=== PATIENT | female | born 1950 | race Caucasian/White ===

== ENCOUNTER → 2016-05-17 | Outpatient (CLI) | payer OTHER, BC ==
[~2016-05-17] MED LIST: ASPI81TA28 PO; BIOT1TAB5 PO; CALCTAB5 PO; CIPR-255 PO; CONJ0.453 PO; LISI-461 PO; MULT-506 PO
[2016-05-17 16:42] LABS: BASO % 0.6 %; BASO ABS # 0.05 K/uL (0-0.2); COMPLETE YES; EOS % 0.9 %; HEMATOCRIT 38.1 % (37-47); IG% 0.2 %; LYMPH % 40.4 %; LYMPH ABS # 3.62 K/uL (1.2-3.4); MEAN CELL VOLUME 92.3 fL (80-100); MEAN CORPUSCULAR HGB CONC 33.6 g/dl (32-36); MEAN PLATELET VOLUME 10.8 fL (7.4-10.4); MONO % 10.4 %; NEUT % 47.5 %; PLATELET COUNT 285 K/uL (130-400); RED BLOOD COUNT 4.13 M/uL (4.2-5.4); URINE APPEARANCE CLEAR (CLEAR); URINE BILIRUBIN NEG (NEG); URINE COLOR YELLOW; URINE NITRITE NEG (NEG); URINE PH 6.5 (4.5-7.5); URINE SPECIFIC GRAVITY 1.017 (1.000-1.030); UROBILINOGEN NEG (NEG); WHITE BLOOD COUNT 8.95 K/uL (4.8-10.8)
[2016-05-17 16:50] LABS: MANUAL MICROSCOPIC REQUIRED? NO; REVIEW REQ? NO
[2016-05-17 16:54] LABS: ALB/GLOB RATIO 1.1 (0.9-2); ALKALINE PHOSPHATASE 62 U/L (45-117); ALT/SGPT 18 U/L (12-78); AST/SGOT 17 U/L (15-37); BLOOD UREA NITROGEN 13 mg/dl (7-18); BUN/CREATININE RATIO 18.8 (10-20); CALCIUM 8.9 mg/dl (8.5-10.1); CARBON DIOXIDE 26 mmol/L (21-32); CHLORIDE 106 mmol/L (98-107); CREATININE 0.69 mg/dl (0.60-1.20); GLUCOSE 88 mg/dl (70-99); POTASSIUM 3.8 mmol/L (3.5-5.1); SODIUM 141 mmol/L (136-145)
== END | disposition home or self-care (01) ==
LOC: C.LAB1850 15:22
PROVIDERS: ATTEND Nurse Practitioner Family
DX: R10.814 Left lower quadrant abdominal tenderness (principal)

== ENCOUNTER → 2016-10-19 | Outpatient (CLI) | payer OTHER, BC ==
[2016-10-19 11:25] LABS: BLOOD UREA NITROGEN 13 mg/dl (7-18); BUN/CREATININE RATIO 18.4 (10-20); CALCIUM 8.2 mg/dl (8.5-10.1); CARBON DIOXIDE 25 mmol/L (21-32); CHLORIDE 107 mmol/L (98-107); CREATININE 0.71 mg/dl (0.60-1.20); GLUCOSE 85 mg/dl (70-99); POTASSIUM 3.8 mmol/L (3.5-5.1); SODIUM 140 mmol/L (136-145)
[2016-10-19 11:28] LABS: CHOLESTEROL 215 mg/dl (0-200); CHOLESTEROL/HDL RATIO 2.9; HDL CHOLESTEROL 74 mg/dl; LDL CHOLESTEROL CALCULATED 121 mg/dl; TRIGLYCERIDES 98 mg/dl (0-150); VERY LOW DENSITY LIPOPROT CALC 20 mg/dl
== END | disposition home or self-care (01) ==
LOC: C.LABBC 07:56
PROVIDERS: ATTEND Family Medicine
DX: I10 Essential (primary) hypertension (principal); E78.00 Pure hypercholesterolemia, unspecified

== ENCOUNTER → 2017-01-09 | Outpatient (CLI) | payer OTHER, BC ==
--- NOTE | 2017-01-10 07:55 | MAMMOGRAPHY REPORT ---
BILATERAL DIGITAL SCREENING MAMMOGRAM TOMOSYNTHESIS WITH CAD: 01/09/2017 CLINICAL HISTORY: Routine screening examination. TECHNIQUE: Breast tomosynthesis in addition to standard 2D mammography was performed. Current study was also evaluated with a Computer Aided Detection (CAD) system. COMPARISON: Comparison is made to exams dated: 08/28/2013 mammogram, 08/03/2015 mammogram, 08/27/2012 m ammogram, 10/27/2010 mammogram - [facility], and 06/12/2007. BREAST COMPOSITION: The tissue of both breasts is almost entirely fatty. FINDINGS: The parenchymal pattern is unchanged. No developing mass, architectural distortion or clus ter of suspicious microcalcifications is seen in either breast. IMPRESSION: ACR BI-RADS CATEGORY 2: BENIGN There is no mammographic evidence of malignancy. A 1 year screening mammogram is recommended. The pa tient will receive written notification of the results. Approximately 10% of breast cancers are not detected with mammography. A negative mammographic report should not delay biopsy if a clinically suggestive mass is present. Mary Treviño M.D. ay/:01/09/2017 17:13:17 [employer] Teacher: Debbie HUMPHREY(R)(M), [facility] letter sent: Normal 1/2 BI-RADS Code: ACR BI-RADS Category 2: Benign
== END | disposition home or self-care (01) ==
LOC: C.MAMM 17:00
PROVIDERS: ATTEND Family Medicine
DX: Z12.31 Encounter for screening mammogram for malignant neoplasm of breast (principal)

== ENCOUNTER → 2017-02-21 | Outpatient (CLI) | payer OTHER, BC | END | disposition home or self-care (01) | LOC: C.LABSPEC 10:34 | PROVIDERS: ATTEND Nurse Practitioner Adult Health | DX: N89.8 Other specified noninflammatory disorders of vagina (principal) ==

== ENCOUNTER → 2017-03-13 | Outpatient (CLI) | payer OTHER, BC ==
[2017-03-13 16:36] LABS: BASO % 0.7 %; BASO ABS # 0.06 K/uL (0-0.2); EOS % 1.3 %; EOS ABS # 0.11 K/uL (0-0.5); HEMATOCRIT 40.3 % (37-47); HEMOGLOBIN 13.5 g/dL (12.0-16.0); IG# 0.02 K/uL (0.00-0.02); LYMPH % 38.9 %; LYMPH ABS # 3.38 K/uL (1.2-3.4); MEAN CELL VOLUME 93.7 fL (80-100); MEAN CORPUSCULAR HEMOGLOBIN 31.4 pg (25-34); MEAN CORPUSCULAR HGB CONC 33.5 g/dl (32-36); MEAN PLATELET VOLUME 10.5 fL (7.4-10.4); MONO % 7.7 %; MONO ABS # 0.67 K/uL (0.11-0.59); NEUT % 51.2 %; NEUT ABS # 4.46 K/uL (1.4-6.5); PLATELET COUNT 271 K/uL (130-400); RED CELL DISTRIBUTION WIDTH CV 13.4 % (11.5-14.5); RED CELL DISTRIBUTION WIDTH SD 45.6 fL (36.4-46.3)
[2017-03-13 17:12] LABS: ALBUMIN 3.5 gm/dl (3.4-5.0); ALT/SGPT 16 U/L (12-78); AST/SGOT 14 U/L (15-37); BLOOD UREA NITROGEN 13 mg/dl (7-18); CALCIUM 8.5 mg/dl (8.5-10.1); CARBON DIOXIDE 26 mmol/L (21-32); CREATININE 0.68 mg/dl (0.60-1.20); GLUCOSE 88 mg/dl (70-99); POTASSIUM 3.6 mmol/L (3.5-5.1); SODIUM 138 mmol/L (136-145); URIC ACID 3.5 mg/dl (2.6-7.2)
[2017-03-13 17:14] LABS: ALKALINE PHOSPHATASE 64 U/L (45-117); TOTAL PROTEIN 7.5 gm/dl (6.4-8.2)
== END | disposition home or self-care (01) ==
LOC: C.LAB1850 15:41
PROVIDERS: ATTEND Nurse Practitioner Family
DX: M79.603 Pain in arm, unspecified (principal)

== ENCOUNTER 2023-07-31 15:01 | Inpatient (IN) ==
[2023-07-31 15:59] LABS: Appearance Urine Clear (Clear); Bacteria Urine Automated None Seen (None Seen); Bilirubin Urine 1+ (Negative); Blood Urine Negative (Negative); Cast Urine Automated 0-2 /lpf (0-2); Color Urine Dark Yellow; Glucose Urine UA Negative (Negative); Ketones Urine 2+ (Negative); Leukocyte Esterase Urine 1+ (Negative); Nitrite Urine Negative (Negative); Protein Urine 1+ (Negative); RBC Urine Automated 0-2 /hpf (0-2); Specific Gravity Urine 1.022 (1.000-1.030); Urobilinogen Urine Negative (Negative)
[2023-07-31 16:00] LABS: Basophils % (auto) 0.5 %; Eosinophils # (auto) 1.19 K/uL (0.00-0.50); Eosinophils % (auto) 6.2 %; Hematocrit (blood only) 36.1 % (37.0-47.0); Immature Granulocytes % (auto) 0.5 %; Lymphocytes % (auto) 10.4 %; Mean Corpuscular Hemoglobin 30.6 pg (25.0-34.0); Mean Corpuscular Hgb Conc 33.2 g/dL (32.0-36.0); Mean Corpuscular Volume 92.1 fL (80.0-100.0); Mean Platelet Volume 10.1 fL (9.4-12.4); Monocytes # (auto) 1.64 K/uL (0.11-0.59); Monocytes % (auto) 8.5 %; Neutrophils # (auto) 14.26 K/uL (1.40-6.50); Neutrophils % (auto) 73.9 %; Platelet Count 266 K/uL (130-400); RDW Coefficient of Variation 13.2 % (11.5-14.5); RDW Standard Deviation 44.6 fL (36.4-46.3); Red Blood Count 3.92 M/uL (4.20-5.40); White Blood Count 19.29 K/ul (4.8-10.8)
--- NOTE | 2023-07-31 16:44 | Emergency Department Note ---
Impression & Plan Abdominal pain, lower, Leukocytosis ED Provider Note NAME: LUIS EDUARDO SCHWARTZ AGE: 73 SEX: Female INFORMANT: Abdominal ED PROVIDER(S): Shay Arroyo MD CHIEF COMPLAINT: Abdominal pain PLAN: Disposition: Admit Outpatient prescription management: none Referral: None MEDICAL DECISION MAKING: Patient presented because of abdominal pain. Initially she declined analgesia. She was sent for CT imaging. Her urinalysis somewhat abnormal but culture sent. She does not have any urinary symptoms. The patient has a significant leukocytosis. CT imaging was concerning for diverticulitis with a small abscess and possible contained perforation. Discussed with the patient. She was started on IV Cipro and Flagyl. Consulted with general surgery, Dr. Saumya Liz. She did review the imaging. She agreed with antibiotics and medical admission. She will consult on the patient. Consultation was made with Dr. Zechariah Rees of the [facility] service. Patient was evaluated in the ER for further management. Care/management discussed with: none Level of care consideration(s): After review of the information above and other included data, I feel the patient requires escalation of care to admission Triage Nursing notes: reviewed and agree them. Vital Signs: reviewed and remarkable for no significant abnormalities Additional History obtained from: none Chronic Medical/Social Conditions affecting care: none Prior/ Outside/ External records reviewed: none Differential Diagnosis: Renal colic, UTI, appendicitis, diverticulitis, mesenteric ischemia, aortic pathology, infections, inflammatory bowel disease, PUD, biliary pathology, as well as other pathologies. Diagnostics, independently interpreted by me: ECG: none Cardiac Monitoring: none Medical decision rules: none Imaging studies: CT imaging of the abdomen pelvis reveals acute diverticulitis with developing abscess and perforation. Radiology noted no drainable fluid collections. HPI: 73 year old Female arrives for evaluation of lower abdominal pain. This started over the last week and is worsened. The patient also notes the following associated symptoms, some mild nausea and diarrhea. The patient has taken no medication for relieving factors. Current pain is rated as 6/10. Patient states she saw her PCP and had a KUB done and was told that she had moderate mount of stool but patient notes she has been having loose stool. Pt denies LOC, headache, fevers, chills, diaphoresis, visual changes, neck pain, chest pain, breathing difficulties, vomiting, back pain, melena, hematochezia, urinary symptoms, numbness, weakness, lymphadenopathy, rash, or other complaints. PAST MEDICAL HISTORY: See Below, diverticulitis PAST SURGICAL HISTORY: See Below, SOCIAL HISTORY: See Below, HOME MEDICATIONS: See Below ALLERGIES: See Below VITALS: See Below PHYSICAL EXAMINATION: GENERAL: Awake, alert, uncomfortable-appearing, in no distress HENT: Normocephalic, atraumatic. Oropharynx unremarkable. EYES: Normal conjunctiva. Sclera non-icteric. NECK: Inspection normal. Non-tender. Supple. No nuchal rigidity. FROM. No masses. RESPIRATORY: Clear to auscultation. No wheezes. No rales. Normal respiratory effort. CARDIAC: Normal rate. Normal rhythm. No murmurs. No rubs. Extremities warm and well perfused. Pulses equal. No JVD. GI: Soft, non-distended. Bilateral lower tenderness to palpation. No rebound or guarding. No masses. RECTAL: Deferred. MUSCULOSKELETAL: Atraumatic. Chest examination reveals no tenderness. The back is symmetrical on inspection without obvious abnormality. There is no CVA tenderness to palpation. No joint edema. LOWER EXTREMITIES: Calves are equal size bilaterally and non-tender. No edema. No discoloration. NEURO: Normal sensorium. No sensory or motor deficits noted. SKIN: No rash or jaundice noted. PROCEDURES: none CRITICAL CARE: none OBSERVATION NOTE: none Past Med/Surg History Problem List (Updated 07/31/23 @ 16:44 by Shay Arroyo MD) Leukocytosis (Acute) Abdominal pain, lower (Acute) Contusion, lips Routine gynecological examination Hyperglycemia Tendonitis of upper biceps tendon of left shoulder Rectal polyp Vitamin B12 deficiency Encounter for health maintenance examination Hormone replacement therapy Sensorineural hearing loss (SNHL) of both ears Aortic regurgitation Hypertension Coronary artery disease PCI to the LAD to D1 06/05/2019. 50-60 percent proximal RCA stenosis Hypercholesterolemia (Acute) Herpes simplex labialis (Acute) Medical History Congestion of nasal sinus Headache Abnormality of eyelid Left shoulder pain Sensorineural hearing loss (SNHL) of right ear with restricted hearing of left ear Bloody stools Acrochordon Cyst of left upper eyelid Decreased hearing Toe pain, bilateral Right asymmetrical SNHL Pyelonephritis Postmenopausal Neoplasm of uncertain behavior of skin Lymphadenopathy Cervical radiculopathy Causalgia of left upper extremity Bulky or enlarged uterus Arm pain, medial Anal polyp Hypertension Surgical History H/O hemorrhoidectomy S/P tonsillectomy and adenoidectomy History of colonoscopy H/O left cataract extraction Hx of tubal ligation S/P tubal ligation Family History Mother Lung cancer Father Myocardial infarction, Onset Age: 51 Throat cancer Brother FH: kidney cancer Denies family history of Ovarian cancer Prostate cancer Breast cancer Colorectal cancer Social History Smoking Status: Never smoker Second Hand Exposure: Yes; Do You Dip or Chew Tobacco: No; Hx Alcohol Use: Yes Alcohol type: wine Hx Substance Use: No Preferred Language: Ukrainian Communication Ability: Effective Visual Impairment: No Limitations 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 Beliefs That Will Affect Care: None marital status: Current Living Situation: Spouse current occupational status: retired current occupation: apartment management Feels Safe at Home: Yes Childhood Exposure to Second-Hand Smoke: Yes Dental Care, Regularly: Yes Physical Activity Frequency: Daily Seatbelt Use: always Sunscreen Use: No Assistive Devices: None Allergies Allergies Allergy/AdvReac Type Severity Reaction Status Date / Time amoxicillin Allergy Mild Hives Verified 07/30/23 15:43 codeine AdvReac Mild Vomiting Verified 07/30/23 15:43 oxycodone AdvReac Mild Vomiting Verified 07/30/23 15:43 ampicillin AdvReac Verified 07/30/23 15:43 Home Meds Home Medications Medication Instructions Recorded Confirmed [id number] acid 1 tab PO QAM #0 tabs 10/07/13 07/31/23 400 mcg-vitamin K 80 mcg capsule (Multi For Her 50 Plus) biotin 1 mg tablet 1 mg PO DAILY 10/10/18 07/31/23 calcium carbonate 600 mg-vitamin 1 tab PO BID 10/10/18 07/31/23 D3 5 mcg (200 unit) tablet mecobalamin (vitamin B12) 1,000 1,000 mcg PO DAILY 01/30/22 07/31/23 mcg lozenges lisinopril 40 mg tablet 40 mg PO DAILY 07/30/23 07/31/23 Previous Rx's Medication Instructions Recorded aspirin 81 mg tablet,delayed 81 mg PO DAILY #30 tabs 05/28/19 release (Adult Aspirin Regimen) valacyclovir 1 gram tablet 2,000 mg (2 x 1 gram) PO BID PRN 02/06/22 cold sores #12 tabs conj estrogen-medroxyprogesterone 1 tab PO QAM #84 tabs 07/05/22 0.45 mg-1.5 mg tablet (Prempro) atorvastatin 40 mg tablet 40 mg PO HS #90 tabs 12/31/22 metoprolol succinate 25 mg 25 mg PO DAILY #90 tabs 02/25/23 tablet,extended release 24 hr Results & Data (ED) Vital Signs Vital Signs - 24 hr 07/31/23 15:05 07/31/23 15:28 07/31/23 15:48 Temperature 36.9 C Temperature Source Temporal Artery Scan Pulse Rate 82 73 Pulse Rate [Apical] Pulse Rate from SpO2 Sensor 73 Respiratory Rate 15 21 Respiratory Effort / Characteristics Non-Labored Spontaneous Respiratory Depth Normal Blood Pressure 162/90 H Blood Pressure [Left Arm] Blood Pressure Mean 114 Blood Pressure Mean [Left Arm] Pulse Oximetry 99 97 Oxygen Delivery Method Room Air Room Air Sepsis Recent Fever Within 48 Hours No Sepsis New/Unexplained Change in Mental Status No Sepsis Action Taken by Nursing No Action Required 07/31/23 16:00 07/31/23 16:03 07/31/23 16:07 Temperature Temperature Source Pulse Rate 71 71 Pulse Rate [Apical] 70 Pulse Rate from SpO2 Sensor 71 Respiratory Rate 14 14 Respiratory Effort / Characteristics Respiratory Depth Blood Pressure Blood Pressure [Left Arm] 130/78 Blood Pressure Mean Blood Pressure Mean [Left Arm] 95 Pulse Oximetry 98 97 Oxygen Delivery Method Room Air Sepsis Recent Fever Within 48 Hours Sepsis New/Unexplained Change in Mental Status Sepsis Action Taken by Nursing 07/31/23 16:48 07/31/23 17:00 07/31/23 17:09 Temperature Temperature Source Pulse Rate 73 72 Pulse Rate [Apical] 70 Pulse Rate from SpO2 Sensor 73 72 Respiratory Rate 20 14 22 Respiratory Effort / Characteristics Respiratory Depth Blood Pressure Blood Pressure [Left Arm] 139/104 H Blood Pressure Mean Blood Pressure Mean [Left Arm] 115 Pulse Oximetry 97 98 98 Oxygen Delivery Method Room Air Sepsis Recent Fever Within 48 Hours Sepsis New/Unexplained Change in Mental Status Sepsis Action Taken by Nursing 07/31/23 18:24 07/31/23 18:25 07/31/23 18:25 Temperature Temperature Source Pulse Rate 79 Pulse Rate [Apical] 79 Pulse Rate from SpO2 Sensor 80 Respiratory Rate 17 22 Respiratory Effort / Characteristics Respiratory Depth Blood Pressure 165/87 H Blood Pressure [Left Arm] 165/87 H Blood Pressure Mean 134 Blood Pressure Mean [Left Arm] 113 Pulse Oximetry 98 99 Oxygen Delivery Method Room Air Sepsis Recent Fever Within 48 Hours Sepsis New/Unexplained Change in Mental Status Sepsis Action Taken by Nursing 07/31/23 18:36 07/31/23 19:12 07/31/23 19:33 Temperature Temperature Source Pulse Rate 78 83 72 Pulse Rate [Apical] Pulse Rate from SpO2 Sensor 78 84 73 Respiratory Rate 18 21 22 Respiratory Effort / Characteristics Respiratory Depth Blood Pressure Blood Pressure [Left Arm] Blood Pressure Mean Blood Pressure Mean [Left Arm] Pulse Oximetry 98 98 98 Oxygen Delivery Method Room Air Sepsis Recent Fever Within 48 Hours Sepsis New/Unexplained Change in Mental Status Sepsis Action Taken by Nursing 07/31/23 19:39 Temperature Temperature Source Pulse Rate 75 Pulse Rate [Apical] Pulse Rate from SpO2 Sensor Respiratory Rate Respiratory Effort / Characteristics Respiratory Depth Blood Pressure Blood Pressure [Left Arm] Blood Pressure Mean Blood Pressure Mean [Left Arm] Pulse Oximetry Oxygen Delivery Method Sepsis Recent Fever Within 48 Hours Sepsis New/Unexplained Change in Mental Status Sepsis Action Taken by Nursing Laboratory Data 07/31/23 15:27 07/31/23 15:27 Lab Results 07/31/23 Range/Units 15:27 WBC 19.29 H (4.8-10.8) K/ul RBC 3.92 L (4.20-5.40) M/uL Hgb 12.0 (12.0-16.0) g/dl Hct 36.1 L (37.0-47.0) % MCV 92.1 (80.0-100.0) fL MCH 30.6 (25.0-34.0) pg MCHC 33.2 (32.0-36.0) g/dL RDW Std Deviation 44.6 (36.4-46.3) fL RDW Coeff of Celia 13.2 (11.5-14.5) % Plt Count 266 (130-400) K/uL MPV 10.1 (9.4-12.4) fL Immature Gran % (Auto) 0.5 % Neut % (Auto) 73.9 % Lymph % (Auto) 10.4 % [place] % (Auto) 8.5 % Eos % (Auto) 6.2 % Baso % (Auto) 0.5 % Neut # (Auto) 14.26 H (1.40-6.50) K/uL Lymph # (Auto) 2.00 (1.20-3.40) K/uL [place] # (Auto) 1.64 H (0.11-0.59) K/uL Eos # (Auto) 1.19 H (0.00-0.50) K/uL Baso # (Auto) 0.10 (0.00-0.20) K/uL Immature Gran # (Auto) 0.10 (0.01-0.20) K/uL Sodium 136 (136-145) mmol/L Potassium 3.9 (3.5-5.1) mmol/L Chloride 104 (98-107) mmol/L Carbon Dioxide 25 (21-32) mmol/L Anion Gap 7 (3-11) BUN 12 (6-23) mg/dl Creatinine 0.60 (0.6-1.2) mg/dl Est Cr Clr Drug Dosing 69.0 ml/min Est GFR ( Amer) 104.1 ml/min Est GFR (Non-Af Amer) 89.8 ml/min BUN/Creatinine Ratio 20.0 (10-20) Glucose 136 H (70-99(Fasting)) mg/dl Calcium 9.1 (8.6-10.3) mg/dl Total Bilirubin 0.5 (0.2-1.0) mg/dl AST 13 (13-39) U/L ALT 11 (7-52) U/L Alkaline Phosphatase 62 (34-104) U/L Total Protein 7.0 (6.0-8.3) gm/dl Albumin 3.6 (3.4-5.0) gm/dl Globulin 3.4 (2.5-4.0) gm/dl Albumin/Globulin Ratio 1.1 (0.9-2) Lipase 8 L (11-82) U/L Urine Color Dark Yellow Urine Appearance Clear (Clear) Urine pH 6.0 (4.5-7.5) Ur Specific [place] 1.022 (1.000-1.030) Urine Protein 1+ H (Negative) Urine Glucose (UA) Negative (Negative) Urine Ketones 2+ H (Negative) Urine Blood Negative (Negative) Urine Nitrite Negative (Negative) Urine Bilirubin 1+ H (Negative) Urine Urobilinogen Negative (Negative) Ur Leukocyte Esterase 1+ H (Negative) Urine WBC (Auto) 11-20 H (0-5) /hpf Urine RBC (Auto) 0-2 (0-2) /hpf U Hyaline Cast (Auto) 0-2 (0-2) /lpf U Epithel Cells (Auto) 6-10 H (0-2) /hpf Urine Bacteria (Auto) None Seen (None Seen) Administered Medications Hydromorphone HCl (Hydromorphone Inj 0.5 Mg/0.5 Ml Syr) 0.25 mg IV Q4H PRN PRN Reason: Severe Pain (Scale 7, 8, 9,10) Stop: 08/14/23 21:09 Last Admin: 07/31/23 21:25 Dose: 0.25 mg Documented By: CESAR Discontinued Medications Sodium Chloride (Nss) 500 mls @ 999 mls/hr IV .Q31M ONE Stop: 07/31/23 16:43 Last Infusion: 07/31/23 20:16 Dose: Infused Documented By: Admin: 07/31/23 16:52 Dose: 999 mls/hr Documented By: FREDERICK Ciprofloxacin (Cipro / D5w) 400 mg in 200 mls @ 100 mls/hr IV NOW STA; Protocol Stop: 07/31/23 20:37 Last Infusion: 07/31/23 21:00 Dose: Infused Documented By: Admin: 07/31/23 18:55 Dose: 100 mls/hr Documented By: FREDERICK Metronidazole (Flagyl) 500 mg in 100 mls @ 100 mls/hr IV NOW STA; Protocol Stop: 07/31/23 19:37 Last Infusion: 07/31/23 20:16 Dose: Infused Documented By: Admin: 07/31/23 18:55 Dose: 100 mls/hr Documented By: FREDERICK Ioversol (Optiray 320 100ml) 90 ml IV ONCE ONE Stop: 07/31/23 17:22 Last Admin: 07/31/23 17:21 Dose: 90 ml Documented By: YURI Imaging Data Radiologist's Impression: Abdomen/Pelvis CT 07/31/23 16:[address] WITH IV CONTRAST CT DOSE: 703.78 mGy.cm HISTORY: Acute lower abdominal pain with leukocytosis lower abd pain, high WBC TECHNIQUE: Multiaxial CT images of the abdomen and pelvis were performed following the IV administration of 90 cc of Optiray, A dose lowering technique was utilized adhering to the principles of ALARA. COMPARISON STUDY: 01/03/2016 FINDINGS: Mild bibasilar atelectasis. No upper abdominal pneumoperitoneum or portal venous gas. Unremarkable spleen, pancreas and adrenal glands. Borderline gallbladder wall thickening with layering sludge versus cholelithiasis. No significant biliary ductal dilation is identified. Unremarkable liver. There is patency of the hepatic and portal veins. Bilateral renal sinus cysts. No hydronephrosis. Unremarkable urinary bladder. Prominent left adnexal vessels of unknown clinical significance. Atherosclerosis of the aorta and branch vessels. Subcentimeter retroperitoneal lymph nodes. Tiny hiatal hernia. No small bowel obstruction. Colonic diverticulosis with acute mid sigmoid diverticulitis. There is eccentric locule of gas in the sigmoid mesentery on image 249 series 3 which may represent air within a diverticulum versus contained perforation. 2.7 cm focus of fluid noted within the sigmoid mesocolon on image 261 series 3 without a definitively well-defined wall. Moderate fecal retention. Normal appendix. There are a few scattered sclerotic subcentimeter foci within the bony pelvis, possibly representing bone islands. No acute fracture. IMPRESSION: 1. Acute sigmoid diverticulitis with possible small contained perforation. 2. Reactive ascites within the pelvis with a possible 2.7 cm developing abscess in the sigmoid mesocolon. No drainable fluid collections. 3. No bowel obstruction. 4. Incidental findings as above. ACT 112: Negative or not required by law. The above report was generated using voice recognition software. It may contain grammatical, syntax or spelling errors. Electronically signed by: Beto Blanc M.D. 07/31/2023 6:12 PM Discharge Plan Visit Data Chief Complaint: Abdominal Pain Stated Complaint: ABD PAIN, ED Provider: Shay Arroyo Discharge Problem: Abdominal pain, lower, Leukocytosis Patient Disposition: Admitted As Inpatient Discharge Instructions Interventions: ED Discharge Assessment Last Done: 07/31/23 20:36
[2023-07-31] MEDS: SODIUM CHLORIDE 0.9% 500 ML IV ONE (16:52)
[2023-07-31 16:56] LABS: Albumin Globulin Ratio 1.1 (0.9-2); Albumin Level 3.6 gm/dl (3.4-5.0); Bilirubin,Total 0.5 mg/dl (0.2-1.0); Calcium 9.1 mg/dl (8.6-10.3); Est GFR (African American) 104.1 ml/min; Est GFR (Non-African American) 89.8 ml/min; Globulin 3.4 gm/dl (2.5-4.0)
[2023-07-31 16:59] LABS: Potassium 3.9 mmol/L (3.5-5.1)
[2023-07-31] MEDS: OPTIRAY 320 100ml IV ONE (17:21)
--- NOTE | 2023-07-31 18:14 | CT Scan Report ---
ABDOMEN AND PELVIS CT WITH IV CONTRAST CT DOSE: 703.78 mGy.cm HISTORY: Acute lower abdominal pain with leukocytosis lower abd pain, high WBC TECHNIQUE: Multiaxial CT images of the abdomen and pelvis were performed following the IV administrat ion of 90 cc of Optiray, A dose lowering technique was utilized adhering to the principles of ALARA. COMPARISON STUDY: 01/03/2016 FINDINGS: Mild bibasilar atelectasis. No upper abdominal pneumoperitoneum or portal venous gas. Unrem arkable spleen, pancreas and adrenal glands. Borderline gallbladder wall thickening with layering slu dge versus cholelithiasis. No significant biliary ductal dilation is identified. Unremarkable liver. There is patency of the hepatic and portal veins. Bilateral renal sinus cysts. No hydronephrosis. Unr emarkable urinary bladder. Prominent left adnexal vessels of unknown clinical significance. Atheroscl erosis of the aorta and branch vessels. Subcentimeter retroperitoneal lymph nodes. Tiny hiatal hernia. No small bowel obstruction. Colonic diverticulosis with acute mid sigmoid diverti culitis. There is eccentric locule of gas in the sigmoid mesentery on image 249 series 3 which may re present air within a diverticulum versus contained perforation. 2.7 cm focus of fluid noted within th e sigmoid mesocolon on image 261 series 3 without a definitively well-defined wall. Moderate fecal re tention. Normal appendix. There are a few scattered sclerotic subcentimeter foci within the bony pelv is, possibly representing bone islands. No acute fracture. IMPRESSION: 1. Acute sigmoid diverticulitis with possible small contained perforation. 2. Reactive ascites within the pelvis with a possible 2.7 cm developing abscess in the sigmoid mesoco leslie. No drainable fluid collections. 3. No bowel obstruction. 4. Incidental findings as above. ACT 112: Negative or not required by law. The above report was generated using voice recognition software. It may contain grammatical, syntax o r spelling errors. Electronically signed by: Beto Blanc M.D. 07/31/2023 6:12 PM
[2023-07-31] MEDS: metroNIDAZOLE 500 MG/100 ML BAG IV STA (18:55)
[2023-07-31] MEDS: CIPROFLOXACIN / D5W 400 MG/200 ML BAG IV STA (18:55)
--- NOTE | 2023-07-31 19:59 | History & Physical Report ---
Date of Service July 31, 2023 Assessment & Plan (1) Acute diverticulitis: (2) Coronary artery disease: (3) Hypercholesterolemia: (4) Hypertension: Plan Anita is a 73 y/o F with PMHx of CAD, HLD, HTN who was admitted for management of acute diverticulitis Acute Diverticulitis -Patient with history of progressively worsening left lower quadrant pain without associated fevers -KUB ordered by her PCP did not show any obstructions but did show moderate fecal retention throughout the colon and phleboliths in the pelvis. -CTAP showing acute sigmoid diverticulitis with possible small contained perforation, reactive ascites within the pelvis with a possible 2.7 cm developing abscess in the sigmoid mesocolon, no drainable fluid collections. -Leukocytosis of 19 on arrival. No history of fevers at home or in ED. -Lactate wnl -ED physician consulted with general surgeon who did not think patient had drainable fluid -Will admit patient for IV antibiotic therapy with Ciprofloxacin 400 mg bid and metronidazole 500 mg q8h -Zofran prn for nausea -Pain management with Tylenol 1000mg q8h for mild pain, Toradol for moderate pain, and Dilaudid for severe pain -Consider general surgery consult if appropriate -am CBC HTN -Continue Lisinopril 40 mg daily HLD -Continue Atorvastatin 40mg daily CAD -Continue Metoprolol succinate 25 mg and ASA 81 mg Dispo: PCU/Tele Fluids: LR @ 125 ml/hr Diet: NPO until surgery eval Pain Control: Tylenol --> Toradol --> Dilaudid VTE ppx: Lovenox Code Status: Full History of Present Illness Chief Complaint: Abdominal Pain Primary Care Provider: Jamin Nieves MD Anita is a 73-year-old female with past medical history relevant for CAD, hyperlipidemia, hypertension, and 6 weeks of diarrhea who came to the emergency department due to abdominal pain. Patient reports having pain that has been mainly localized to the left lower quadrant with occasional radiation to the suprapubic region that began last Saturday (07/20/23) and has steadily gotten worse. Associated symptoms included nausea and tired. She has also had 6 weeks of diarrhea that got acutely worse once her abdominal pain began. KUB ordered by her PCP did not show obstruction, but did show moderate fecal retention throughout the colon. When she brought this up to her PCP, they did a UA a considering the possibility that of this being related to a UTI that was but this was negative. Therefore, her PCP recommended a bowel cleanse considering that her pain may be related to constipation. Because patient has history of prior diverticulitis that was treated with p.o. antibiotics, she believes that her pain could be related to another episode of diverticulitis and had asked for a CT of her abdomen. Due to delay in getting this imaging done because of insurance protocols, she was advised to go to the emergency department for further evaluation. Upon arrival, CTAP was done which showed diverticulitis in the sigmoid colon. ED Course: Fluid bolus of normal saline given, ciprofloxacin and metronidazole started as antibiotic regimen due to patient's history of amoxicillin allergy. Spoke to general surgeon who evaluated imaging studies and determined that there were no fluid collections to drain. Labs/Imaging: CTAP showing acute sigmoid diverticulitis with possible small contained perforation, reactive ascites within the pelvis with a possible 2.7 cm developing abscess in the sigmoid mesocolon, no drainable fluid collections. CBC with leukocytosis of 19.29 with neutrophilic predominance and eosinophilia of 1.19, hemoglobin of 12. Metabolic panel without significant electrolyte abnormalities, renal markers within reference range, blood sugar of 136, liver enzymes within reference range, lipase of 8. UA showing 2+ ketones, some leukocyte esterase, no bacteria. Medical History: [Reviewed] Medications: [Reviewed] Surgical History: [Reviewed] Social History: [Reviewed] Code Status: Full Allergies Allergy/AdvReac Type Severity Reaction Status Date / Time amoxicillin Allergy Mild Hives Verified 07/30/23 15:43 codeine AdvReac Mild Vomiting Verified 07/30/23 15:43 oxycodone AdvReac Mild Vomiting Verified 07/30/23 15:43 ampicillin AdvReac Verified 07/30/23 15:43 Home Medications Medication Instructions Recorded Confirmed Type ditdfuyeogjg-lulmdapn-lzzcm acid 1 tab PO QAM #0 tabs 10/07/13 07/31/23 History 400 mcg-vitamin K 80 mcg capsule (Multi For Her 50 Plus) biotin 1 mg tablet 1 mg PO DAILY 10/10/18 07/31/23 History calcium carbonate 600 mg-vitamin 1 tab PO BID 10/10/18 07/31/23 History D3 5 mcg (200 unit) tablet aspirin 81 mg tablet,delayed 81 mg PO DAILY #30 tabs 05/28/19 07/31/23 Rx release (Adult Aspirin Regimen) mecobalamin (vitamin B12) 1,000 1,000 mcg PO DAILY 01/30/22 07/31/23 History mcg lozenges valacyclovir 1 gram tablet 2,000 mg (2 x 1 gram) PO BID PRN 02/06/22 07/31/23 Rx cold sores #12 tabs conj estrogen-medroxyprogesterone 1 tab PO QAM #84 tabs 07/05/22 07/31/23 Rx 0.45 mg-1.5 mg tablet (Prempro) atorvastatin 40 mg tablet 40 mg PO HS #90 tabs 12/31/22 07/31/23 Rx metoprolol succinate 25 mg 25 mg PO DAILY #90 tabs 02/25/23 07/31/23 Rx tablet,extended release 24 hr lisinopril 40 mg tablet 40 mg PO DAILY 07/30/23 07/31/23 History Past Med/Surg History Problem List (Updated 07/31/23 @ 16:44 by Shay Arroyo MD) Leukocytosis (Acute) Abdominal pain, lower (Acute) Contusion, lips Routine gynecological examination Hyperglycemia Tendonitis of upper biceps tendon of left shoulder Rectal polyp Vitamin B12 deficiency Encounter for health maintenance examination Hormone replacement therapy Sensorineural hearing loss (SNHL) of both ears Aortic regurgitation Hypertension Coronary artery disease PCI to the LAD to D1 06/05/2019. 50-60 percent proximal RCA stenosis Hypercholesterolemia (Acute) Herpes simplex labialis (Acute) Medical History Congestion of nasal sinus Headache Abnormality of eyelid Left shoulder pain Sensorineural hearing loss (SNHL) of right ear with restricted hearing of left ear Bloody stools Acrochordon Cyst of left upper eyelid Decreased hearing Toe pain, bilateral Right asymmetrical SNHL Pyelonephritis Postmenopausal Neoplasm of uncertain behavior of skin Lymphadenopathy Cervical radiculopathy Causalgia of left upper extremity Bulky or enlarged uterus Arm pain, medial Anal polyp Hypertension Surgical History H/O hemorrhoidectomy S/P tonsillectomy and adenoidectomy History of colonoscopy H/O left cataract extraction Hx of tubal ligation S/P tubal ligation Family History Mother Lung cancer Father Myocardial infarction, Onset Age: 51 Throat cancer Brother FH: kidney cancer Denies family history of Ovarian cancer Prostate cancer Breast cancer Colorectal cancer Social History Smoking Status: Never smoker Second Hand Exposure: Yes; Do You Dip or Chew Tobacco: No; Hx Alcohol Use: Yes Alcohol type: wine Hx Substance Use: No Preferred Language: Rwandan Communication Ability: Effective Visual Impairment: No Limitations Hearing Ability: Use of Hearing Aid Supplier Quality Specialist Required: No Beliefs That Will Affect Care: None marital status: Current Living Situation: Spouse current occupational status: retired current occupation: apartment management Feels Safe at Home: Yes Childhood Exposure to Second-Hand Smoke: Yes Dental Care, Regularly: Yes Physical Activity Frequency: Daily Seatbelt Use: always Sunscreen Use: No Assistive Devices: None Review of Systems Review of Systems: As per HPI Physical Exam Physical Exam: GENERAL: AAOx3, afebrile, calm, NAD HEAD: AT, NC EYES: EOM intact, XANDER, no conjunctival injection CHEST: symmetric chest expansions CARDIO: RRR, murmur on right sternal border PULMONARY: CTA bilaterally, normal respiratory effort, no respiratory distress GI: non-distended, soft, tenderness to superficial palpation of LLQ, suprapubic tenderness due to pain radiation to LLQ, no tenderness in other abdominal quadrants : no Hussein EXTREMITIES: no swelling or calf tenderness in bilateral LE SKIN: no rashes or lesions observed Results & Data Results & Data Vital Signs (Past 12 Hours) Vital Signs Temp Pulse Pulse Resp BP BP Pulse Ox 07/31/23 19:39 75 07/31/23 18:25 79 22 165/87 H 99 07/31/23 17:00 70 14 139/104 H 98 07/31/23 16:07 71 07/31/23 16:00 70 14 130/78 98 07/31/23 15:48 73 21 97 07/31/23 15:28 07/31/23 15:05 36.9 C 82 15 162/90 H 99 O2 Del Method 07/31/23 19:39 07/31/23 18:25 Room Air 07/31/23 17:00 Room Air 07/31/23 16:07 06/19/24 16:00 Room Air 07/31/23 15:48 07/31/23 15:28 Room Air 07/31/23 15:05 Room Air Supervising Physician Co-Signing Physician Notes Patient seen and examined, chart reviewed, case discussed with Ania Dias MD and I agree with the assessment and plan as above except as otherwise noted Labs and images reviewed Anita is a 73-year-old female who presents with acute diverticulitis. She was not on antibiotics preceding admission. CT shows acute sigmoid diverticulitis with possible small contained perforation, possible 2.7 cm developing abscess adjacent to the sigmoid without drainable fluid collection. She has a leukocytosis of 19. She is hemodynamically stable at time of bedside assessment. Patient has had some constipation with 6 weeks of liquid diarrhea however abdominal pain is acute in the last week. At bedside assessment she has left lower quadrant tenderness to palpation, but no tenderness to palpation at the right lower abdomen/no guarding/no rebound/no rigidity. No signs of acute abdomen. Surgery was consulted, small nondrainable abscess recommended for medical admission and treatment at this time. Patient has a hive allergy as a young adult to amoxicillin and has no record of receiving penicillins or cephalosporins. She does not have any vascular abnormalities, aneurysms, is a non-smoker, and has a normal baseline QT. Will continue Cipro/Flagyl however of concern for failure to improve patient is agreeable to trialing Rocephin/Flagyl and monitoring closely for allergy. N.p.o., IV FM. Agree with above.
--- NOTE | 2023-07-31 20:21 | Billing Data ---
Date of Service July 31, 2023 Coding Level of Care Code 41533 INT INP/OBS CARE
[2023-07-31] MEDS ORDERED: ONDANSETRON INJ 2 MG/ML 2 ML VIAL IV PRN (21:10)
[2023-07-31] MEDS ORDERED: ACETAMINOPHEN 1,000 MG/100 ML VIAL IV PRN (21:10)
[2023-07-31] MEDS: HYDROmorphone INJ 0.5 MG/0.5 ML SYR IV PRN (21:25)
[2023-07-31] MEDS: LACTATED RINGER'S 1,000 ML IV SCH (21:34)
[2023-07-31] MEDS: ATORVASTATIN 40 MG TAB PO SCH (22:10)
[2023-08-01] MEDS: metroNIDAZOLE 500 MG/100 ML BAG IV SCH (03:11)
[2023-08-01] MEDS: CIPROFLOXACIN / D5W 400 MG/200 ML BAG IV SCH (06:48)
[2023-08-01 07:20] LABS: Basophils % (auto) 0.6 %; Eosinophils % (auto) 4.6 %; Hematocrit (blood only) 32.3 % (37.0-47.0); Immature Granulocytes # (auto) 0.07 K/uL (0.01-0.20); Immature Granulocytes % (auto) 0.4 %; Lymphocytes # (auto) 2.16 K/uL (1.20-3.40); Lymphocytes % (auto) 12.4 %; Mean Corpuscular Hemoglobin 31.4 pg (25.0-34.0); Mean Corpuscular Hgb Conc 34.1 g/dL (32.0-36.0); Mean Corpuscular Volume 92.3 fL (80.0-100.0); Mean Platelet Volume 9.9 fL (9.4-12.4); Monocytes # (auto) 1.77 K/uL (0.11-0.59); Monocytes % (auto) 10.1 %; Neutrophils # (auto) 12.54 K/uL (1.40-6.50); Neutrophils % (auto) 71.9 %; Platelet Count 249 K/uL (130-400); RDW Coefficient of Variation 13.1 % (11.5-14.5); White Blood Count 17.44 K/ul (4.8-10.8)
[2023-08-01 07:40] LABS: Albumin Globulin Ratio 1.1 (0.9-2); Albumin Level 3.1 gm/dl (3.4-5.0); Bilirubin,Total 0.7 mg/dl (0.2-1.0); Calcium 8.2 mg/dl (8.6-10.3); Creatinine Clr Calc Pharmacy 76.5 ml/min; Est GFR (African American) 107.7 ml/min; Globulin 2.7 gm/dl (2.5-4.0); Potassium 3.6 mmol/L (3.5-5.1); Total Protein 5.8 gm/dl (6.0-8.3)
--- NOTE | 2023-08-01 07:53 | Surgery Consultation ---
<Statement entered by Stephanie Salas DO - 08/01/23 10:47> I have seen and examined this patient with the surgical team this a.m. I agree with this plan Date of Consultation August 01, 2023 Assessment & Plan (1) Perforation of sigmoid colon due to diverticulitis: This is a 73yF with a PMH of HTN, coronary artery disease, HLD who presents to the [facility] ED on 07/31/23 with complaints of abdominal pain. She started having loose stools in June after one of her HTN medications was adjusted. This has been persisting now in addition to some abdominal discomfort starting over the wknd. Workup with a KUB was unremarkable outside of some fecal retention and she was given a bowel cleanse. As her symptoms persisted and pain worsened she ended up coming into the ER for further evaluation. She underwent a CT a/p that revealed acute sigmoid diverticulitis with possible small contained perforation. Reactive ascites within the pelvis with a possible 2.7 cm developing abscess in the sigmoid mesocolon. No drainable fluid collections. The patient states she did have a bout of diverticulitis many years ago and was treated with outpatient antibiotics. Her last colonoscopy was about 4 years ago and she noted no concerns. Today's blood work reveals WBC 17 (19), Hbg 11, Cr 0.56. Vital signs are stable and patient is afebrile. On exam abdomen is soft with tenderness to palpation in the LLQ and suprapubic regions. Agree with hospitalization and current supportive management of perforated diverticulitis with small abscess, unnameable to drainage at this time. Continue bowel rest (may have ice chips), IVF, and IV abx. We will continue to monitor closely. Patient is feeling better than admission and hopefully she will continue to progress without the need for any emergent surgical intervention. Will trend WBC and vital signs and her clinical status for ongoing improvement. We will follow closely. History of Present Illness Attending Physician: Carlos Feliz MD History of Present Illness This is a 73yF with a PMH of HTN, coronary artery disease, HLD who presents to the [facility] ED on 07/31/23 with complaints of abdominal pain. Patient is unsure if this is related, but she said she started having multiple loose stools a week after her helminthology teacher adjusted some of her blood pressure medications. She let it go on for a few weeks when she decided to research side effects of the drug she was placed on (lisinopril-HCTZ) and loose stools was one of them. She then came off the medication for a wk then resumed it, when last Saturday she stated braeden ricardo had upwards of 6 bouts of diarrhea with incontinence. Saturday she felt better, but then Saturday she started developing lower abdominal pain. The pain worsened and was associated with malaise and nausea. She went to her PCP office this wk where they sent off a UA and was placed on a "bowel cleanse" after workup with a KUB showed fecal retention. Unfortunately as her symptoms of lower abdominal pain persisted, rating it a 9/10 in severity at its worst, she decided to come into the ER for evaluation. She underwent a CT a/p that revealed acute sigmoid diverticulitis with possible small contained perforation. Reactive ascites within the pelvis with a possible 2.7 cm developing abscess in the sigmoid mesocolon. No drainable fluid collections. The patient states she did have a bout of diverticulitis many years ago and was treated with outpatient antibiotics. Her last colonoscopy was about 4 years ago and she noted no concerns. She has no prior abdominal surgical history. She denies emesis, fevers/chills, CP or bloody BMs. Allergies Allergy/AdvReac Type Severity Reaction Status Date / Time amoxicillin Allergy Mild Hives Verified 07/30/23 15:43 codeine AdvReac Mild Vomiting Verified 07/30/23 15:43 oxycodone AdvReac Mild Vomiting Verified 07/30/23 15:43 ampicillin AdvReac Verified 07/30/23 15:43 Home Medications Medication Instructions Recorded Confirmed Type iqthhvimopeb-uwpkydup-jhwij acid 1 tab PO QAM #0 tabs 10/07/13 07/31/23 History 400 mcg-vitamin K 80 mcg capsule (Multi For Her 50 Plus) biotin 1 mg tablet 1 mg PO DAILY 10/10/18 07/31/23 History calcium carbonate 600 mg-vitamin 1 tab PO BID 10/10/18 07/31/23 History D3 5 mcg (200 unit) tablet aspirin 81 mg tablet,delayed 81 mg PO DAILY #30 tabs 05/28/19 07/31/23 Rx release (Adult Aspirin Regimen) mecobalamin (vitamin B12) 1,000 1,000 mcg PO DAILY 01/30/22 07/31/23 History mcg lozenges valacyclovir 1 gram tablet 2,000 mg (2 x 1 gram) PO BID PRN 02/06/22 07/31/23 Rx cold sores #12 tabs conj estrogen-medroxyprogesterone 1 tab PO QAM #84 tabs 07/05/22 07/31/23 Rx 0.45 mg-1.5 mg tablet (Prempro) atorvastatin 40 mg tablet 40 mg PO HS #90 tabs 12/31/22 07/31/23 Rx metoprolol succinate 25 mg 25 mg PO DAILY #90 tabs 02/25/23 07/31/23 Rx tablet,extended release 24 hr lisinopril 40 mg tablet 40 mg PO DAILY 07/30/23 07/31/23 History Patient History Medical History Congestion of nasal sinus Headache Abnormality of eyelid Left shoulder pain Sensorineural hearing loss (SNHL) of right ear with restricted hearing of left ear Bloody stools Acrochordon Cyst of left upper eyelid Decreased hearing Toe pain, bilateral Right asymmetrical SNHL Pyelonephritis Postmenopausal Neoplasm of uncertain behavior of skin Lymphadenopathy Cervical radiculopathy Causalgia of left upper extremity Bulky or enlarged uterus Arm pain, medial Anal polyp Hypertension Surgical History H/O hemorrhoidectomy S/P tonsillectomy and adenoidectomy History of colonoscopy H/O left cataract extraction 10/22/17- given 4mg IV versed without issues Hx of tubal ligation S/P tubal ligation Family History Mother Lung cancer Father Myocardial infarction, Onset Age: 51 Throat cancer Brother FH: kidney cancer Denies family history of Ovarian cancer Prostate cancer Breast cancer Colorectal cancer Social History Smoking Status: Never smoker Second Hand Exposure: Yes; Do You Dip or Chew Tobacco: No; Hx Alcohol Use: Yes Alcohol type: hard liquor Hx Substance Use: No Preferred Language: Wolof Communication Ability: Effective Visual Impairment: No Limitations Hearing Ability: Use of Hearing Aid Welder And Fitter Required: No Beliefs That Will Affect Care: None marital status: Current Living Situation: Spouse current occupational status: retired current occupation: apartment management Feels Safe at Home: Yes Childhood Exposure to Second-Hand Smoke: Yes Dental Care, Regularly: Yes Physical Activity Frequency: Daily Seatbelt Use: always Sunscreen Use: No Assistive Devices: None Review of Systems Constitutional: + fatigue and + malaise; no fever and no chills Respiratory: + dyspnea Cardiovascular: no chest pain Gastrointestinal: + abdominal pain, + nausea and + diarrhe a/loose stools; no vomiting and no blood in stools Genitourinary: no problem reported Physical Exam Physical Exam: awake/alert, no distress Constitutional: well developed and well nourished; no acute distress Respiratory: normal respiratory effort Gastrointestinal (Abdomen): Inspection/Auscultation: + abdomen distended (mild lower abdominal distention) Percussion/Palpation: + abdomen tender (discomfort in LLQ and suprapubic regions) and abdomen soft Results & Data Vital Signs (Past 12 Hours) Vital Signs Temp Pulse Pulse Resp BP Pulse Ox O2 Del Method 08/01/23 07:34 76 08/01/23 03:09 98.6 F 68 16 129/80 96 Room Air 07/31/23 22:00 70 07/31/23 21:00 73 07/31/23 21:00 98.1 F 72 20 152/75 H 98 Room Air 07/31/23 20:17 92 H 8 L Diagnostic Findings ABDOMEN AND PELVIS CT WITH IV CONTRAST CT DOSE: 703.78 mGy.cm HISTORY: Acute lower abdominal pain with leukocytosis lower abd pain, high WBC TECHNIQUE: Multiaxial CT images of the abdomen and pelvis were performed following the IV administration of 90 cc of Optiray, A dose lowering technique was utilized adhering to the principles of ALARA. COMPARISON STUDY: 01/03/2016 FINDINGS: Mild bibasilar atelectasis. No upper abdominal pneumoperitoneum or portal venous gas. Unremarkable spleen, pancreas and adrenal glands. Borderline gallbladder wall thickening with layering sludge versus cholelithiasis. No sign ificant biliary ductal dilation is identified. Unremarkable liver. There is patency of the hepatic and portal veins. Bilateral renal sinus cysts. No hydronephrosis. Unremarkable urinary bladder. Prominent left adnexal vessels of unknown clinical significance. Atherosclerosis of the aorta and branch vessels. Subcentimeter retroperitoneal lymph nodes. Tiny hiatal hernia. No small bowel obstruction. Colonic diverticulosis with acute mid sigmoid diverticulitis. There is eccentric locule of gas in the sigmoid mesentery on image 249 series 3 which may represent air within a diverticulum versus contained perforation. 2.7 cm focus of fluid noted within the sigmoid mesocolon on image 261 series 3 without a definitively well-defined wall. Moderate fecal retention. Normal appendix. There are a few scattered sclerotic subcentimeter foci within the bony pelvis, possibly representing bone islands. No acute fracture. IMPRESSION: 1. Acute sigmoid diverticulitis with possible small contained perforation. 2. Reactive ascites within the pelvis with a possible 2.7 cm developing abscess in the sigmoid mesocolon. No drainable fluid collections. 3. No bowel obstruction. 4. Incidental findings as above. ACT 112: Negative or not required by law. The above report was generated using voice recognition software. It may contain grammatical, syntax or spelling errors. Electronically signed by: Beto Blanc M.D. 07/31/2023 6:12 PM PG Care Time/CCT Total # of Minutes Spent Total Time Spent with Patient: Total time spent is greater than 50% in coordination of care (as documented) at patient's floor/unit and/or counseling patient: Coding Level of Care Code 49791 INT INP/OBS CARE 2/55MIN Diagnoses Perforation of sigmoid colon due to diverticulitis K57.20
[2023-08-01] MEDS: ASPIRIN 81 MG ECTAB PO SCH (09:39)
[2023-08-01] MEDS: METOPROLOL SUCC 25MG EXT REL TAB PO SCH (09:39)
[2023-08-01] MEDS: lisinopril 40 MG TAB PO SCH (09:39)
[2023-08-01] MEDS: ENOXAPARIN INJ 40 MG/0.4 ML SYR SQ SCH (09:40)
--- NOTE | 2023-08-01 10:54 | Hospitalist Progress Note ---
Date of Service August 01, 2023 Assessment & Plan (1) Perforation of sigmoid colon due to diverticulitis: Plan: Patient was admitted on account of lower abd pain Found to have Acute diverticulitis with small perforation and abscess on Ct abd No draianable abscess though Started empirically on IV Flagyl and Ciprogloxacin Gen surgery on board, no surgical indications for now keep NPO (2) Hypertension: Plan: BP is under fair control On Lisinopril at home, continue (3) Coronary artery disease: Plan: stable Plan continue hospitalization Admission and Anticipated Discharge Date Admission Date: July 31, 2023 Subjective patient seen and examined, feels better today, minimal abd pain, no nausea or vomiting Review of Systems Review of Systems: All systems reviewed are negative, apart from the ones contained in the history. Physical Exam Physical Exam: The patient is awake, alert and oriented 3, well developed and well nourished, normocephalic and atraumatic, lying in bed and in no acute distress. HEENT--PERRL, EOMI, mucous membranes and oropharynx mildly dry Neck--supple. No JVD. No bruits. Thyroid normal, trachea midline, no adenopathy. Heart--normal S1 and S2. No murmurs, rubs or gallops. Lungs--clear bilaterally, no respiratory distress, no accessory muscle use. Abdomen--normal bowel sounds and soft. Extremities--no cyanosis or clubbing. No edema. Dermatologic--normal skin turgor, normal color, no abnormal lymph nodes, no rash. Neurologic--cranial nerves II through XII grossly intact. Rheumatologic--normal range of motion. Psychiatric--normal affect. Results & Data Results & Data Vital Signs (Past 12 Hours) Vital Signs Temp Pulse Pulse Resp BP Pulse Ox O2 Del Method 08/01/23 08:27 98.6 F 75 18 151/87 H 97 Room Air 08/01/23 07:34 76 08/01/23 03:09 98.6 F 68 16 129/80 96 Room Air PG Care Time/CCT Total # of Minutes Spent Total Time Spent with Patient: Total time spent is greater than 50% in coordination of care (as documented) at patient's floor/unit and/or counseling patient: Coding Level of Care Code 85631 SUB INP/OBS CARE 2/35MIN Diagnoses Perforation of sigmoid colon due to diverticulitis K57.20 Hypertension I10 Coronary artery disease I25.10 Time Spent (min) 35
[2023-08-01] MEDS: KETOROLAC TROMETHAMINE 15 MG/ML VIAL IV PRN (18:29)
[2023-08-02 06:36] LABS: Basophils # (auto) 0.09 K/uL (0.00-0.20); Basophils % (auto) 0.6 %; Eosinophils # (auto) 0.69 K/uL (0.00-0.50); Eosinophils % (auto) 4.8 %; Hemoglobin 10.8 g/dl (12.0-16.0); Immature Granulocytes # (auto) 0.06 K/uL (0.01-0.20); Immature Granulocytes % (auto) 0.4 %; Lymphocytes # (auto) 2.45 K/uL (1.20-3.40); Lymphocytes % (auto) 17.1 %; Mean Corpuscular Hemoglobin 30.9 pg (25.0-34.0); Mean Corpuscular Hgb Conc 33.8 g/dL (32.0-36.0); Mean Corpuscular Volume 91.4 fL (80.0-100.0); Mean Platelet Volume 9.3 fL (9.4-12.4); Monocytes # (auto) 1.35 K/uL (0.11-0.59); Monocytes % (auto) 9.4 %; Neutrophils # (auto) 9.71 K/uL (1.40-6.50); Neutrophils % (auto) 67.7 %; Platelet Count 263 K/uL (130-400); RDW Coefficient of Variation 12.2 % (11.5-14.5); RDW Standard Deviation 41.2 fL (36.4-46.3); White Blood Count 14.35 K/ul (4.8-10.8)
[2023-08-02 06:59] LABS: Albumin Globulin Ratio 1.1 (0.9-2); Albumin Level 3.1 gm/dl (3.4-5.0); BUN Creatinine Ratio 11.3 (10-20); Bilirubin,Total 0.5 mg/dl (0.2-1.0); Calcium 8.1 mg/dl (8.6-10.3); Creatinine Clr Calc Pharmacy 77.9 ml/min; Est GFR (African American) 108.4 ml/min; Est GFR (Non-African American) 93.5 ml/min; Globulin 2.8 gm/dl (2.5-4.0); Potassium 3.4 mmol/L (3.5-5.1); Total Protein 5.9 gm/dl (6.0-8.3)
--- NOTE | 2023-08-02 12:10 | Surgery Progress Note ---
Date of Service August 02, 2023 Assessment & Plan (1) Perforation of sigmoid colon due to diverticulitis: Plan Leukocytosis is resolving at 14,000 today from 17,000 yesterday. The patient has been afebrile, continues to experience resolving symptoms and is non TTP to mild palpation. Has been tolerating ice chips. Will go ahead and allow the patient to be advanced to clear liquids. I have asked her to take in small amounts of clears at a time. If she develops any abdominal cramping with oral intake to hold off any further today. Dr. Goncalves will follow-up and see the patient in the a.m. as he is on-call over this weekend. Of note, the patient is looking forward to being able to be discharged at least by Saturday to participate in a planned camping trip Saturday. As long as she continues to show improving symptoms without any relapses I do not see the utility in performing a repeat CT to follow-up on the small abscess at this time. This may be considered on outpatient basis when she is close to the completion of her oral antibiotic course after discharge. She may follow-up with me in the office in 1 to 2 weeks for this assessment. Admission and Anticipated Discharge Date Admission Date: July 31, 2023 Subjective This patient was seen and examined today. Today she denies any abdominal pain, states she is able to ambulate without pain. She denies nausea/vomiting, fevers or chills. She states she feels as though she is starving and demands to have some form of advanced oral intake aside from ice chips which she has been tole rating. Physical Exam Constitutional: average body habitus and healthy appearing; not ill appearing, not in distress and not diaphoretic Respiratory: normal respiratory effort; no respiratory distress, no labored breathing and does not use accessory muscles Gastrointestinal (Abdomen): Inspection/Auscultation: abdomen normal to inspection; abdomen not distended Percussion/Palpation: abdomen soft; abdomen nontender, no guarding and abdomen not rigid Results & Data Vital Signs (Past 12 Hours) Vital Signs Temp Pulse Pulse Resp BP Pulse Ox O2 Del Method 08/02/23 11:21 36.9 C 66 18 170/92 H 99 Room Air 08/02/23 07:43 69 08/02/23 07:29 37.0 C 67 16 161/84 H 97 Room Air 08/02/23 02:40 36.6 C 64 16 145/79 H 97 Room Air Diagnostic Findings WBC 14,000 today from 17,000 yesterday PG Care Time/CCT Total # of Minutes Spent Total Time Spent with Patient: Total time spent is greater than 50% in coordination of care (as documented) at patient's floor/unit and/or counseling patient: Coding Level of Care Code 98020 SUB INP/OBS CARE 03/07MIN Diagnoses Perforation of sigmoid colon due to diverticulitis K57.20
--- NOTE | 2023-08-02 12:12 | Hospitalist Progress Note ---
Date of Service August 02, 2023 Assessment & Plan (1) Perforation of sigmoid colon due to diverticulitis: Plan: Patient was admitted on account of lower abd pain Found to have Acute diverticulitis with small perforation and abscess on Ct abd No draianable abscess though Started empirically on IV Flagyl and Ciprogloxacin Gen surgery on board, no surgical indications for now Patient has been n.p.o. but states she wants to eat General surgery notified, started on clear liquid diet. She may need repeat CT abdomen for follow-up, however will defer to surgery. (2) Hypertension: Plan: BP is under fair control On Lisinopril at home, continue (3) Coronary artery disease: Plan: stable Plan continue hospitalization Admission and Anticipated Discharge Date Admission Date: July 31, 2023 Subjective Patient seen and examined, said the pain is better but she is frustrated that she has been n.p.o., she wants to eat. Review of Systems Review of Systems: All systems reviewed are negative, apart from the ones contained in the history. Physical Exam Physical Exam: The patient is awake, alert and oriented 3, well developed and well nourished, normocephalic and atraumatic, lying in bed and in no acute distress. HEENT--PERRL, EOMI, mucous membranes and oropharynx mildly dry Neck--supple. No JVD. No bruits. Thyroid normal, trachea midline, no adenopathy. Heart--normal S1 and S2. No murmurs, rubs or gallops. Lungs--clear bilaterally, no respiratory distress, no accessory muscle use. Abdomen--normal bowel sounds and soft. Extremities--no cyanosis or clubbing. No edema. Dermatologic--normal skin turgor, normal color, no abnormal lymph nodes, no rash. Neurologic--cranial nerves II through XII grossly intact. Rheumatologic--normal range of motion. Psychiatric--normal affect. Results & Data Results & Data Vital Signs (Past 12 Hours) Vital Signs Temp Pulse Pulse Resp BP Pulse Ox O2 Del Method 08/02/23 11:21 98.4 F 66 18 170/92 H 99 Room Air 08/02/23 07:43 69 08/02/23 07:29 98.6 F 67 16 161/84 H 97 Room Air 08/02/23 02:40 97.9 F 64 16 145/79 H 97 Room Air PG Care Time/CCT Total # of Minutes Spent Total Time Spent with Patient: Total time spent is greater than 50% in coordination of care (as documented) at patient's floor/unit and/or counseling patient: Coding Level of Care Code 72246 SUB INP/OBS CARE 2/35MIN Diagnoses Perforation of sigmoid colon due to diverticulitis K57.20 Hypertension I10 Coronary artery disease I25.10 Time Spent (min) 35
[2023-08-02] MEDS: LACTATED RINGER'S 1,000 ML IV SCH (15:03)
[2023-08-02] MEDS: amLODIPine BESYLATE 5 MG TAB PO ONE (18:09)
[2023-08-03 07:56] LABS: Basophils # (auto) 0.07 K/uL (0.00-0.20); Basophils % (auto) 0.7 %; Eosinophils # (auto) 0.55 K/uL (0.00-0.50); Eosinophils % (auto) 5.7 %; Hematocrit (blood only) 34.5 % (37.0-47.0); Hemoglobin 11.8 g/dl (12.0-16.0); Immature Granulocytes # (auto) 0.04 K/uL (0.01-0.20); Immature Granulocytes % (auto) 0.4 %; Lymphocytes # (auto) 1.69 K/uL (1.20-3.40); Lymphocytes % (auto) 17.6 %; Mean Corpuscular Hgb Conc 34.2 g/dL (32.0-36.0); Mean Corpuscular Volume 90.6 fL (80.0-100.0); Mean Platelet Volume 9.8 fL (9.4-12.4); Monocytes # (auto) 0.97 K/uL (0.11-0.59); Monocytes % (auto) 10.1 %; Neutrophils # (auto) 6.27 K/uL (1.40-6.50); Neutrophils % (auto) 65.5 %; Platelet Count 302 K/uL (130-400); RDW Coefficient of Variation 12.8 % (11.5-14.5); RDW Standard Deviation 42.5 fL (36.4-46.3); Red Blood Count 3.81 M/uL (4.20-5.40); White Blood Count 9.59 K/ul (4.8-10.8)
[2023-08-03 08:18] LABS: Albumin Globulin Ratio 1.1 (0.9-2); Albumin Level 3.3 gm/dl (3.4-5.0); BUN Creatinine Ratio 10.4 (10-20); Bilirubin,Total 0.4 mg/dl (0.2-1.0); Calcium 8.3 mg/dl (8.6-10.3); Est GFR (Non-African American) 96.6 ml/min; Globulin 3.1 gm/dl (2.5-4.0); Total Protein 6.4 gm/dl (6.0-8.3)
--- NOTE | 2023-08-03 08:52 | Surgery Progress Note ---
Date of Service August 03, 2023 Assessment & Plan (1) Perforation of sigmoid colon due to diverticulitis: Plan: Pt here w/ perforated sigmoid diverticulitis with small abscess WBC 9 (14). Vitals are stable Pt feeling improvement in pain overall. Abdominal exam improving Tolerating clears, hungry for more Will advance to low fiber, if tolerates may plan on dispo later today Recommend a course of po abx of at least 10 days in addition to an outpt GI appt for colonoscopy in 6-8 wks (last one was 4 years ago) Admission and Anticipated Discharge Date Admission Date: July 31, 2023 Supervising Physician Co-Signing Physician Notes pnt S&E, agree w/ above. diverticulitis with small phlegmon/abscess, improved. afvss, abd soft, minimally ttp, wbc normal. d/c on low fiber diet, abx, f/u with pcp. Needs new colonoscopy. Subjective patient reports feeling much better. Abdominal pain improving. tolerating clears no nausea/vomiting Physical Exam Physical Exam: awake/alert, no distress Respiratory: normal respiratory effort Gastrointestinal (Abdomen): Inspection/Auscultation: abdomen not distended Percussion/Palpation: + abdomen tender (improving LLQ and suprapubic discomfort to palpation ) and abdomen soft Results & Data Vital Signs (Past 12 Hours) Vital Signs Temp Pulse Pulse Resp BP BP Pulse Ox 08/03/23 08:03 98.4 F 65 16 152/82 H 98 08/03/23 03:16 98.2 F 66 16 157/82 H 97 08/02/23 23:07 97.7 F 73 16 165/90 H 97 08/02/23 23:00 64 O2 Del Method 08/03/23 08:03 Room Air 08/03/23 03:16 Room Air 08/02/23 23:07 Room Air 08/02/23 23:00 PG Care Time/CCT Total # of Minutes Spent Total Time Spent with Patient: Total time spent is greater than 50% in coordination of care (as documented) at patient's floor/unit and/or counseling patient: Coding Level of Care Code 85496 SUB INP/OBS CARE 03/07MIN Diagnoses Perforation of sigmoid colon due to diverticulitis K57.20
--- NOTE | 2023-08-03 09:30 | Hospitalist Progress Note ---
Date of Service August 03, 2023 Assessment & Plan (1) Perforation of sigmoid colon due to diverticulitis: Plan: Patient was admitted on account of lower abd pain Found to have Acute diverticulitis with small perforation and abscess on Ct abd No drainable abscess though Started empirically on IV Flagyl and Ciprofloxacin Gen surgery on board, no surgical indications for now Tolerating clear liquid diet, patient wants her diet advanced to general She may need repeat CT abdomen for follow-up outpatient Patient wants to be discharged today, if he tolerates general diet she will be discharged (2) Hypertension: Plan: BP is under fair control On Lisinopril at home, continue (3) Coronary artery disease: Plan: stable Plan If patient tolerates general diet, will discharge Admission and Anticipated Discharge Date Admission Date: July 31, 2023 Subjective Patient seen and examined, she tolerated clear liquid diet and wants her diet advanced to general, looks for early discharge today Review of Systems Review of Systems: All systems reviewed are negative, apart from the ones contained in the history. Physical Exam Physical Exam: The patient is awake, alert and oriented 3, well developed and well nourished, normocephalic and atraumatic, lying in bed and in no acute distress. HEENT--PERRL, EOMI, mucous membranes and oropharynx mildly dry Neck--supple. No JVD. No bruits. Thyroid normal, trachea midline, no adenopathy. Heart--normal S1 and S2. No murmurs, rubs or gallops. Lungs--clear bilaterally, no respiratory distress, no accessory muscle use. Abdomen--normal bowel sounds and soft. Extremities--no cyanosis or clubbing. No edema. Dermatologic--normal skin turgor, normal color, no abnormal lymph nodes, no rash. Neurologic--cranial nerves II through XII grossly intact. Rheumatologic--normal range of motion. Psychiatric--normal affect. Results & Data Results & Data Vital Signs (Past 12 Hours) Vital Signs Temp Pulse Pulse Resp BP BP Pulse Ox 08/03/23 08:03 98.4 F 65 16 152/82 H 98 08/03/23 03:16 98.2 F 66 16 157/82 H 97 08/02/23 23:07 97.7 F 73 16 165/90 H 97 08/02/23 23:00 64 O2 Del Method 08/03/23 08:03 Room Air 06/22/24 03:16 Room Air 08/02/23 23:07 Room Air 08/02/23 23:00 PG Care Time/CCT Total # of Minutes Spent Total Time Spent with Patient: Total time spent is greater than 50% in coordination of care (as documented) at patient's floor/unit and/or counseling patient: Coding Level of Care Code 60718 SUB INP/OBS CARE 2/35MIN Diagnoses Perforation of sigmoid colon due to diverticulitis K57.20 Hypertension I10 Coronary artery disease I25.10 Time Spent (min) 35
[2023-08-03] MEDS: amLODIPine BESYLATE 5 MG TAB PO SCH (09:40)
[2023-08-03] MEDS: POTASSIUM CHLORIDE CRTAB 20 MEQ TABCR PO STA (10:06)
[2023-08-03] MEDS: metroNIDAZOLE 500 MG TAB PO STA (12:16)
--- NOTE | 2023-08-03 12:36 | Discharge Summary ---
Date of Service August 03, 2023 Admission HPI Per Admitting Provider Anita is a 73-year-old female with past medical history relevant for CAD, hyperlipidemia, hypertension, and 6 weeks of diarrhea who came to the emergency department due to abdominal pain. Patient reports having pain that has been mainly localized to the left lower quadrant with occasional radiation to the suprapubic region that began last Saturday (07/20/23) and has steadily gotten worse. Associated symptoms included nausea and tired. She has also had 6 weeks of diarrhea that got acutely worse once her abdominal pain began. KUB ordered by her PCP did not show obstruction, but did show moderate fecal retention th roughout the colon. When she brought this up to her PCP, they did a UA a considering the possibility that of this being related to a UTI that was but this was negative. Therefore, her PCP recommended a bowel cleanse considering that her pain may be related to constipation. Because patient has history of prior diverticulitis that was treated with p.o. antibiotics, she believes that her pain could be related to another episode of diverticulitis and had asked for a CT of her abdomen. Due to delay in getting this imaging done because of insurance protocols, she was advised to go to the emergency department for further evaluation. Upon arrival, CTAP was done which showed diverticulitis in the sigmoid colon. ED Course: Fluid bolus of normal saline given, ciprofloxacin and metronidazole started as antibiotic regimen due to patient's history of amoxicillin allergy. Spoke to general surgeon who evaluated imaging studies and determined that there were no fluid collections to drain. Labs/Imaging: CTAP showing acute sigmoid diverticulitis with possible small contained perforation, reactive ascites within the pelvis with a possible 2.7 cm developing abscess in the sigmoid mesocolon, no drainable fluid collections. CBC with leukocytosis of 19.29 with neutrophilic predominance and eosinophilia of 1.19, hemoglobin of 12. Metabolic panel without significant electrolyte abnormalities, renal markers within reference range, blood sugar of 136, liver enzymes within reference range, lipase of 8. UA showing 2+ ketones, some leukocyte esterase, no bacteria. Medical History: [Reviewed] Medications: [Reviewed] Surgical History: [Reviewed] Social History: [Reviewed] Code Status: Full Principal Diagnosis diverticulitis with perforation and abscess Discharge Exam The patient is awake, alert and oriented 3, well developed and well nourished, normocephalic and atraumatic, lying in bed and in no acute distress. HEENT--PERRL, EOMI, mucous membranes and oropharynx mildly dry Neck--supple. No JVD. No bruits. Thyroid normal, trachea midline, no adenopathy. Heart--normal S1 and S2. No murmurs, rubs or gallops. Lungs--clear bilaterally, no respiratory distress, no accessory muscle use. Abdomen--normal bowel sounds and soft. Extremities--no cyanosis or clubbing. No edema. Dermatologic--normal skin turgor, normal color, no abnormal lymph nodes, no rash. Neurologic--cranial nerves II through XII grossly intact. Rheumatologic--normal range of motion. Psychiatric--normal affect. Discharge Data Allergies Allergy/AdvReac Type Severity Reaction Status Date / Time amoxicillin Allergy Mild Hives Verified 07/30/23 15:43 codeine AdvReac Mild Vomiting Verified 07/30/23 15:43 oxycodone AdvReac Mild Vomiting Verified 07/30/23 15:43 ampicillin AdvReac Verified 07/30/23 15:43 Consultations 07/31/23 20:02 ED Decision to Admit Stat Ordered Studies 07/31/23 16:12 CT Abd and Pelvis [CT abd pelvis IV con only] Stat Hospital Course (1) Perforation of sigmoid colon due to diverticulitis: Patient was admitted on account of lower abd pain Found to have Acute diverticulitis with small perforation and abscess on Ct abd No drainable abscess though Started empirically on IV Flagyl and Ciprofloxacin Gen surgery on board, no surgical indications for now Tolerating clear liquid diet, patient wants her diet advanced to general She may need repeat CT abdomen for follow-up outpatient Patient wants to be discharged today, if he tolerates general diet she will be discharged on PO Flagyl and Cipro for 1 more week (2) Hypertension: BP is under fair control On Lisinopril at home, continue (3) Coronary artery disease: stable Plan If patient tolerates general diet, will discharge Total Time Total Time Spent Total Time Spent (In Minutes): 35 Discharge Plan Discharge Items Patient Disposition: Home - Self-Care Reason For Visit: ABDOMINAL PAIN Discharge Diagnosis: perforated sigmoid diverticulitis with aabscess Activity: Resume your previous activity Non-emergency contact: Primary Care Provider and Surgeon Call non-emergency contact if: you have any medication questions and your symptoms worsen Follow-up/Referrals: Jamin Nieves MD [Primary Care Provider] - Stephanie Salas DO [Physician] - (May call to schedule follow up in the office within 1-2 weeks) Diet: Low Fiber Addtl Attending Provider Instructions: Continue on a low fiber diet over the next few weeks Pending Studies at Discharge: No Stand-Alone Forms: [facility], Smoking Cessation Medications and DC Order Prescriptions: New ciprofloxacin HCl 500 mg tablet 500 mg PO BID 7 Days Qty: 14 0RF metronidazole [Flagyl] 375 mg capsule 375 mg PO BID 7 Days Qty: 14 0RF Continued Multi For Her 50 Plus 400-80 mcg tablet 1 tab PO QAM Qty: 0 valacyclovir 1 gram tablet 2,000 mg PO BID PRN (Reason: cold sores) Qty: 12 5RF atorvastatin 40 mg tablet 40 mg PO HS Qty: 90 3RF metoprolol succinate 25 mg tablet extended release 24 hr 25 mg PO DAILY Qty: 90 3RF calcium carbonate-vitamin D3 600 mg(1,500mg) -200 unit tablet 1 tab PO BID biotin 1 mg tablet 1 mg PO DAILY aspirin [Adult Aspirin Regimen] 81 mg tablet,delayed release (DR/EC) 81 mg PO DAILY Qty: 30 2RF mecobalamin (vitamin B12) 1,000 mcg lozenge 1,000 mcg PO DAILY Rx Instructions: allow to dissolve in mouth OR may chew lightly before swallowing Prempro 0.45-1.5 mg tablet 1 tab PO QAM Qty: 84 3RF lisinopril 40 mg tablet 40 mg PO DAILY Discharge Orders: Discharge Order (Routine); Ordered 08/03/23 Ordered By: Carlos Feliz Admission Data Admit Date/Time: 07/31/23 19:42 Attending Provider: Carlos Feliz Admit Provider: Ania Dias Primary Care Provider: Jamin Nieves V. Other Providers: Zechariah Rees Coding Level of Care Code 96086 INP/OBS DISCH >30 MIN Diagnoses Perforation of sigmoid colon due to diverticulitis K57.20 Hypertension I10 Coronary artery disease I25.10 Time Spent (min) 35
== END 2023-08-03 14:03 | disposition home or self-care (01) | DRG 392 ==
LOC: ED 15:01 → SUATTDRO 19:42 → 2S 19:42